=== PATIENT | female | born 1990 | race Hispanic/Latino ===

== ENCOUNTER 2017-04-22 13:45 | Emergency (ER) | payer OTHER ==
[~2017-04-22] VITALS: Ht 160 cm; Wt 60.8 kg
[2017-04-22 18:04] VITALS: BP 116/68
== END 2017-04-22 15:30 | disposition home or self-care (01) ==
LOC: FSED 13:45
DX: R10.2 Pelvic and perineal pain (principal); Z32.01 Encounter for pregnancy test, result positive
CPT/HCPCS: 99284